=== PATIENT | female | born 1980 | race Caucasian/White ===

== ENCOUNTER 2016-08-15 15:52 | Emergency (ER) | payer SELFPAY ==
[2016-08-15 16:03] VITALS: BP 115/57; PULSE 92; TEMP 98.4; BMI 40.1
== END 2016-08-15 18:40 | disposition left against medical advice (07) ==
LOC: ED 15:52 → EDMC 18:40
DX: R11.2 Nausea with vomiting, unspecified (principal); R19.7 Diarrhea, unspecified
CPT/HCPCS: 99281